=== PATIENT | male | born 1960 | race Caucasian/White ===

== ENCOUNTER 2016-07-27 17:14 | Emergency (ER) | payer OTHER ==
[~2016-07-27] VITALS: Ht 195.6 cm; Wt 102.3 kg
[2016-07-27 17:27] VITALS: BP 175/131; PULSE 85; RESP 16; O2SAT 98
--- NOTE | 2016-07-27 18:19 | ED.REPORT ---
HPI-Neurologic Deficit Date of Service Jul 27, 2016 ED Provider: Deric Tam DO Pt is a 56 y.io. male who presents to the ED c/o gradually worsening neck and upper back pain onset 2 weeks ago. Pt reports that pain radiates to his right arm and has associated right arm weakness. Pt denies fever, chills, nausea, vomiting, diarrhea, and general weakness. He states that he had similar pain several years ago that was resolved with a cortisone injection. After onset of his recent sx he received another cortisone injection but this time he felt no relief. Nursing Notes Stated Complaint: BACK PAIN Chief Complaint: Neuro Symptoms/ Deficits Nursing Notes Reviewed: Yes Allergies: Coded Allergies: No Known Allergies (Unverified , 07/27/16) General Time Seen by Provider: 18:19 Chief Complaint Weakness arm... (Right) Hx Obtained From: Patient Arrived By: Walk-in Sudden in Onset?: Yes Onset Occurred: More than a week ago... (2 weeks) Symptom Duration: Since onset Location: : Arm right: Back upper: Neck Quality: Painful Severity: Current: Moderate Severity: Maximum: Severe Recent Healthcare: No recent hospitalization, Recent doctor visit Similar Sx Previous: Yes Past Medical History Past Medical History Hx of [place] MARTI COPD Past Surgical History Reports: Back/neck surgery Social History Other Social History: Good social support Ambulatory Status Independent Review of Systems Constitutional: Denies: Chills, Fever GI: Denies: Diarrhea, Nausea, Vomiting Musculoskeletal: Reports: Back pain, Extremity pain (Right arm), Neck pain Neurologic: Reports: Focal weakness (Right arm) Complete sys rev & neg: except as marked. Physical Exam Initial Vital Signs Vital Signs (First) Date Time Temp Pulse Resp B/P Pulse Ox O2 Delivery O2 Flow Rate FiO2 07/27/16 17:27 35.9 85 16 175/131 98 07/27/16 19:46 Room Air Initial VS: Reviewed General/Constitutional: Awake, Alert, No acute distress, Well appearing, Well developed, Well hydrated, Well nourished, Not toxic appearing Head / Eyes: Atraumatic, Normocephalic, PERRL Respiratory / Chest: Atraumatic, Breath sounds NL, Breath sounds = bilat, No respiratory distress, No rales, No rhonchi, No wheezing, No retractions, No stridor Cardiovascular: Heart rate NL, Regular rhythm, Heart sounds NL, Peripheral circulation NL Neurologic: Oriented X3, Speech NL Focal Weakness: Positive: Upper extremity R (Decreased bicep and tricep strength) Neck: Atraumatic, Supple Neck / Muscle Tenderness: Positive: Midline tenderness low Back: Atraumatic Flank / Spine / Paraspinal: Positive: Thoracic spine tender... (High) Interpretation & Diagnostics PROCEDURE: MRI CERVICAL SPINE WITHOUT CONTRAST ([id number]) IMPRESSION: There is diffuse disc degenerative disease mild mild to moderate degree at C4-5 , C5-6, C6-7, and C7-T1. But there is no more than loss of ventral CSF space. No cord compression or deviation is seen. 2. Degenerative changes cause moderate to severe foraminal narrowing on the right at C4-5, bilaterally at C5-6 and severe foraminal narrowing bilaterally at C6-7. There is mild to moderate foraminal narrowing on the left at C4-5 and on the right at C7-T1. 3. No abnormal signal or size of the cord is seen. No paraspinal abnormal soft tissues or foreign. Dictated by: Juan Dumas M.D. on 07/27/2016 at 20:01 Approved by: Juan Dumas M.D. on 07/27/2016 at 20:14 Lab Results Interpretation Result Diagram: 07/27/16 1845 07/27/16 184 Test 07/27/16 18:45 White Blood Count 9.4th/mm3 (3.8-10.1) Red Blood Count 5.19mil/mm3 (4.40-5.80) Hemoglobin 16.6g/dL (13.8-17.2) Hematocrit 48.1% (41.0-50.0) Mean Corpuscular Volume 92.7fL (81-100) Mean Corpuscular Hemoglobin 32.0pg (27.0-35.0) Mean Corpuscular Hemoglobin Concent 34.5% (32.0-37.0) Red Cell Distribution Width 13.9% (12.3-15.4) Platelet Count 169bil/L (150-400) Neutrophils (%) (Auto) 60.8% (40-74) Lymphocytes (%) (Auto) 27.9% (14-46) Monocytes (%) (Auto) 8.4% (4-12) Eosinophils (%) (Auto) 2.4% (0-5) Basophils (%) (Auto) 0.3% (0-3) D-Dimer 0.8mg/L (<0.50) Sodium Level 141mEq/L (134-144) Potassium Level 4.5mEq/L (3.5-5.2) Chloride Level 105mEq/L (97-108) Carbon Dioxide Level 20mmol/L (18-29) Blood Urea Nitrogen 23mg/dL (6-24) Creatinine 0.99mg/dL (0.76-1.27) Estimat Glomerular Filtration Rate 83mL/min (>59) Glucose Level 98mg/dL (60-99) Calcium Level 9.0mg/dL (8.5-10.1) Total Bilirubin 0.6mg/dL (0.0-1.2) Aspartate Amino Transf (AST/SGOT) 21U/L (0-50) Alanine Aminotransferase (ALT/SGPT) 26U/L (0-44) Alkaline Phosphatase 82U/L (25-150) Troponin T < 0.010ug/L (0.0-0.011) C-Reactive Protein 0.3mg/dL (0.0-0.5) Total Protein 7.0g/dL (6.4-8.4) Albumin 4.3g/dL (3.4-5.0) Hold Mckinnon Top Tube Received (Received) ECG Interpretation Time: 21:07 Interpreted by: ED physician Normal ECG Interpretation: Normal rate (63), Normal sinus rhythm, No acute ischemic changes X-Ray Chest Interpretation Chest Xray Interpretation: IMPRESSION: Hyperinflated lungs suggesting COPD. Acute disease is not seen in the two-view chest. Dictated by: Juan Dumas M.D. on 07/27/2016 at 21:20 Approved by: Juan Dumas M.D. on 07/27/2016 at 21:21 CT Chest Interpretation IMPRESSION: Acute disease is not seen in the lungs. No evidence for embolus. Air and great vessels are considered normal. Cause of intrascapular pain is not apparent. No bony abnormality is seen. Dictated by: Juan Dumas M.D. on 07/27/2016 at 21:54 Approved by: Juan Dumas M.D. on 07/27/2016 at 22:00 Re-Eval/Medical Decision Med Decision/Clinical Course The MRI did not show any acute neurosurgical emergency. There is some spinal stenosis but I am not convinced is completely is the root cause of the radiculopathy. What is concerning is that he has history of DVT and he said some intermittent pain between his scapula. Although the pain seems musculoskeletal he had an elevated d-dimer so we Ct/D his chest. There is no PE. No dissection. No Pancoast tumor. I think he is going to do well with some oral pain medication. Also put him on a Medrol Dosepak and have close outpatient follow-up. Source of Hx: Old records Re-Evaluation/Progress #1: Time of Eval: 21:18 Re-Evaluation/Progress Note: Pt rechecked. Discussed MRI and x-ray results and need for CT. Pt understands and agrees with plan. Re-Evaluation/Progress #2: Time of Eval: 22:16 Re-Evaluation/Progress Note: Pt rechecked. Discussed plan for discharge, pt understands and agrees with plan. Counseled Regarding: Diagnosis Discharge & Departure Impression: Primary Impression: Cervical radiculopathy Additional Impression: Pinched nerve in neck Disposition: Home Discharge Condition All VS Reviewed: Yes Patient Instructions: Cervical Radiculopathy (ED) Additional Instructions: It appears that you have cervical radiculopathy. Follow-up with Dr. Ramirez. Take Medrol as directed. Take 1-2 Percocet every 6 hours as needed for pain. Do not drink, drive, or consume acetaminophen while taking Percocet. You may need a referral to an orthopedic spine surgeon or a neurologist. No blood clot, tear in your aorta, or mass pushing on brachial plexus was seen in your imaging. Return if you have any new or worsening symptoms such as increased weakness, numbness, tingling, or worsening pain. Referrals: Desean Ivy MD (Family) [place] Attestation Portions of this note were transcribed by Hanna Reyna. I, Dr. Tam personally performed the history, physical exam and medical decision-making; I reviewed and confirmed the accuracy of the information in the transcribed note. Signed by : Britt Concepcion, 07/27/16 and [id number]. copies to: Brad Ramirez MD; Desean Ivy MD, Todd P DO Jul 27, 2016 18:19 HANNA REYNA Jul 27, 2016 18:27
[2016-07-27] MEDS ORDERED: Ondansetron 2 mg/mL 2 mL Inj IVPUSH PRN (18:25)
[2016-07-27] MEDS: HYDROmorphone 0.5 mg/0.5 mL iSecure Syringe IVPUSH PRN ×4 (18:55→22:47)
[2016-07-27 19:05] LABS: BASOPHILS % (AUTO) 0.3 % (0-3); EOSINOPHILS % (AUTO) 2.4 % (0-5); MONOCYTES % (AUTO) 8.4 % (4-12); Mean Corpuscular Volume 92.7 fL (81-100); NEUTROPHILS % (AUTO) 60.8 % (40-74); Platelet Count 169 bil/L (150-400)
[2016-07-27 19:46] VITALS: BP 146/104; PULSE 71; O2SAT 98
--- NOTE | 2016-07-27 20:15 | DRSVH ---
PROCEDURE: MRI CERVICAL SPINE WITHOUT CONTRAST ([id number]) INDICATIONS: neck pain, tricep weak on right TECHNIQUE: Noncontrast sagittal T1 spin echo and T2 fast spin echo, sagittal STIR, foraminal oblique sagittal T2 fast spin echo, and axial gradient echo or T2 fast spin echo through the cervical spine. COMPARISON: None. FINDINGS: Image quality: Good. Alignment and Curvature: There is normal bony alignment. Bone Marrow: Marrow demonstrates normal overall signal. Spinal Cord: Visualized spinal cord has normal size and signal. No cerebellar tonsillar herniation. Paraspinous Soft Tissues: No paravertebral masses. Prevertebral soft tissues are normal in thicknes s. C2-C3: Normal appearance. C3-C4: Normal appearance. C4-C5: Is a minimal anterolisthesis of C4 on C5. There is mild mild disc osteophyte complex. Uncinate spurs and facet hypertrophic change causes moderate to severe right and mild to moderate left forami nal narrowing. There is a slight decrease in CSF space but no cord compression or deviation. C5-C6: There is mild diffuse bulging of disc uncinate spurs and facet hypertrophic change causes mode rate to severe foraminal narrowing bilaterally. There is a decrease in CSF space but no cord compress ion or deviation is seen. C6-C7: Is mild to moderate disc osteophyte complex. Uncinate spurs and facet hypertrophic change caus es severe foraminal narrowing bilaterally. There is decrease in CSF space but no cord compression or deviation. C7-T1: Mild diffuse bulging of disc is present. Uncinate spur and disc causes mild to moderate right foraminal narrowing. None is seen in the left. T1-T2: Normal appearance. T2-T3: Normal appearance. T3-T4: Normal appearance. IMPRESSION: There is diffuse disc degenerative disease mild mild to moderate degree at C4-5, C5-6, C6-7, and C7-T 1. But there is no more than loss of ventral CSF space. No cord compression or deviation is seen. 2. Degenerative changes cause moderate to severe foraminal narrowing on the right at C4-5, bilaterall y at C5-6 and severe foraminal narrowing bilaterally at C6-7. There is mild to moderate foraminal alicia rowing on the left at C4-5 and on the right at C7-T1. 3. No abnormal signal or size of the cord is seen. No paraspinal abnormal soft tissues or foreign. Dictated by: Juan Dumas M.D. on 07/27/2016 at 20:01 Approved by: Juan Dumas M.D. on 07/27/2016 at 20:14
[2016-07-27 21:14] VITALS: BP_SYST 133; BP_SYST 144; BP_DIAS 102; BP_DIAS 91
--- NOTE | 2016-07-27 21:22 | DRSVH ---
PROCEDURE: X-RAY CHEST, TWO VIEWS ([id number]) INDICATIONS: intrascapular pain TECHNIQUE: 2 views of the chest were acquired. COMPARISON: None. FINDINGS: Surgical changes and devices: None. Lungs and pleura: No pleural effusions or pneumothorax. Lungs are hyperinflated consistent with an e lement of COPD. No airspace disease. Acute disease is not identified. Mediastinum: Mediastinal contours are normal. Heart size is normal. Bones and chest wall: No suspicious bony abnormalities. Soft tissues appear unremarkable. IMPRESSION: Hyperinflated lungs suggesting COPD. Acute disease is not seen in the two-view chest. Dictated by: Juan Dumas M.D. on 07/27/2016 at 21:20 Approved by: Juan Dumas M.D. on 07/27/2016 at 21:21
--- NOTE | 2016-07-27 22:01 | DRSVH ---
PROCEDURE: CT ANGIO CHEST PULMONARY EMBOLISM ([id number]) INDICATIONS: intrascapular pain, chest pain, elevated ddimer TECHNIQUE: After the administration of intravenous contrast, 2 mm thick sections acquired from the pulmonary api yeni to the posterior costophrenic angles. 3-dimensional maximum intensity projection (MIP) coronal a nd sagittal reformats were then acquired through the thorax. For radiation dose reduction, the follo wing was used: automated exposure control, adjustment of mA and/or kV according to patient size. COMPARISON: [facility], CR, XR CHEST 2VW, 07/27/2016, 20:54. FINDINGS: Image quality: Good. Pulmonary arteries: Pulmonary arteries are normal in size, and demonstrate no intraluminal filling d efects to suggest central pulmonary embolism. Lungs and pleura: There is biapical pleural thickening and scarring. Lungs are clear. No pleural ef fusions or pneumothorax. Central and peripheral airways are patent. Mediastinum: Heart size is normal, without pericardial effusion. No mediastinal or hilar adenopathy . Thoracic aorta is normal in caliber and enhancement. Esophagus is normal in caliber, without hiat al hernia. Bones and chest wall: No suspicious bony lesions. Ribs and thoracic spine appear intact throughout. Thyroid gland is within normal limits.. No axillary or supraclavicular adenopathy. Abdomen: Visualized upper abdominal solid organs appear normal in the early arterial phase of enhanc ement. IMPRESSION: Acute disease is not seen in the lungs. No evidence for embolus. Air and great vessels are considered normal. Cause of intrascapular pain is not apparent. No bony abnormality is seen. Dictated by: Juan Dumas M.D. on 07/27/2016 at 21:54 Approved by: Juan Dumas M.D. on 07/27/2016 at 22:00
[2016-07-27] MEDS ORDERED: _oxyCODONE/APAP 5-325 mg Tablet PO PRN (22:10)
[2016-07-27] MEDS ORDERED: Dexamethasone Inj 10 MG in 0.9% Sodium Chloride-Pha MIX 50 ML IV ONE (22:10)
[2016-07-28 00:02] VITALS: BP 149/102; PULSE 88; RESP 14; O2SAT 98
[2016-07-28] MEDS ORDERED: Sodium Chloride LOK Flush 10 mL Syringe IVFLUSH SCH (00:30)
== END 2016-07-27 21:10 | disposition home or self-care (01) ==
LOC: SED 17:14
DX: M54.12 Radiculopathy, cervical region (principal); G58.8 Other specified mononeuropathies; I25.2 Old myocardial infarction; J44.9 Chronic obstructive pulmonary disease, unspecified
CPT/HCPCS: 36415; 71020; 71275; 72141; 80053; 84484; 85025; 85379; 86140; 93005; 96374; 96375; 96376; 99285; J1100; J1170; J2405; Q9967

== ENCOUNTER 2017-02-16 16:54 | Emergency (ER) | payer OTHER ==
[~2017-02-16] VITALS: Ht 195.6 cm; Wt 103.6 kg
[2017-02-16 16:57] VITALS: BP 118/82; PULSE 115; RESP 20; O2SAT 98
[2017-02-16 17:01] VITALS: BP 93/68; PULSE 119
[2017-02-16 18:03] LABS: BASOPHILS % (AUTO) 0.2 % (0-3); EOSINOPHILS % (AUTO) 1.2 % (0-5); MONOCYTES % (AUTO) 6.5 % (4-12); Mean Corpuscular Hemoglobin 32.6 pg (27.0-35.0); NEUTROPHILS % (AUTO) 77.9 % (40-74); Platelet Count 171 bil/L (150-400)
[2017-02-16 18:15] LABS: INR 1.03 ratio
[2017-02-16 18:35] LABS: APPEARANCE,URINE TURBID (CLEAR,HAZY); COLOR,URINE BLOODY (YELLOW)
[2017-02-16 18:36] LABS: OCCULT BLOOD,URINE LARGE (NEGATIVE); UROBILINOGEN,URINE NORMAL (NORMAL)
[2017-02-16 18:52] LABS: TROPONIN T < 0.010 ug/L (0.0-0.011)
--- NOTE | 2017-02-16 19:17 | ED.REPORT ---
HPI-General Illness Date of Service Feb 16, 2017 ED Provider: Milton Gonzalez MD A 56 year old male with a history of previous [place], COPD, recent CVA (12/2016) on Xeralto for the past month and MARTI presents to the ED with hematuria that began 24 hours ago. The patient was sent from for further evaluation after urine was positive for blood. He noticed a large amount of bright red blood in his urine yesterday at 1600 and his symptoms have been constant since onset. Last known normal urination was 2 days ago. There are no known exacerbating or relieving factors. The patient also reports experiencing lightheadedness for the past few days. Per nursing note, orthostatic vitals in the ED triage room were positive. Patient denies any recent fever, chills, dysuria, abdominal pain , testicular pain, chest pain, or SOB. He denies history of kidney stones. Nursing Notes Stated Complaint: BLOOD IN URINE SENT FROM Chief Complaint: Male Abdominal Pain Nursing Notes Reviewed: Yes Allergies: Coded Allergies: No Known Allergies (Unverified , 07/27/16) General Time Seen by MD: 17:12 Chief Complaint Other (Hematuria) Hx Obtained From: Patient Arrived By: Walk-in Sudden in Onset?: No Onset Occurred: Yesterday Symptom Duration: Since onset Additional Notes: + Hematuria + Lightheadeness Pertinent Negative: Pt denies other symptoms Recent Healthcare: No recent doctor visit, No recent hospitalization Past Medical History Past Medical History Hx of [place] MARTI COPD CVA Past Surgical History Reports: Back/neck surgery Social History Other Social History: Good social support, Local resident Ambulatory Status Independent Review of Systems Full Review of Systems Constitutional: Denies: Chills, Fever GI: Denies: Abdominal pain Male: Reports Hematuria, Denies Dysuria, Denies Testicular pain Neurologic: Reports: Lightheaded Complete sys rev & neg: except as marked. Physical Exam Nursing note and vitals reviewed. Constitutional: Well-developed, well-nourished. Not diaphoretic. Head: Normocephalic and atraumatic. Mouth/Throat: Oropharynx is clear and moist. No oropharyngeal exudate. Eyes: EOM are normal. Pupils are equal, round, and reactive to light. Neck: Supple, no tracheal deviation. Cardiovascular: Normal rate, regular rhythm. Equal and intact distal pulses throughout. Pulmonary/Chest: Effort normal and breath sounds normal. No respiratory distress. Abdominal: Soft. No distension. There is no tenderness, rebound, or guarding. Bowel sounds present. Male : No blood at the urethral meatus. Penis appears normal. Testicles nontender. Musculoskeletal: Range of motion grossly intact, moving all extremities. No edema or tenderness appreciated. Neurological: AOx3. Grossly nonfocal exam. Strength and sensation intact and equal to bilateral upper and lower extremities. * Skin: Warm and dry, no rashes or pallor appreciated. Psychiatric: Appropriate mood and affect. Behavior appears normal. Vital Signs Vital Signs Date Time Temp Pulse Resp B/P Pulse Ox O2 Delivery O2 Flow Rate FiO2 02/16/17 22:46 36.7 108 20 108/68 98 Room Air 02/16/17 17:01 119 93/68 02/16/17 16:57 36.1 115 20 118/82 98 Room Air Initial VS: Reviewed Interpretation & Diagnostics Lab Results Interpretation Result Diagram: 02/16/17 1745 02/16/17 1745 Test 02/16/17 15:45 02/16/17 17:09 02/16/17 17:45 02/16/17 18:12 Hold Mckinnon Top Tube Received (Received) Hold Urine Received (Received) White Blood Count 10.9th/mm3 (3.8-10.1) Red Blood Count 4.63mil/mm3 (4.40-5.80) Hemoglobin 15.1g/dL (13.8-17.2) Hematocrit 44.0% (41.0-50.0) Mean Corpuscular Volume 95.0fL (81-100) Mean Corpuscular Hemoglobin 32.6pg (27.0-35.0) Mean Corpuscular Hemoglobin Concent 34.3% (32.0-37.0) Red Cell Distribution Width 14.3% (12.3-15.4) Platelet Count 171bil/L (150-400) Neutrophils (%) (Auto) 77.9% (40-74) Lymphocytes (%) (Auto) 13.9% (14-46) Monocytes (%) (Auto) 6.5% (4-12) Eosinophils (%) (Auto) 1.2% (0-5) Basophils (%) (Auto) 0.2% (0-3) Prothrombin Time 11.0sec (8.1-12.5) Prothromb Time International Ratio 1.03ratio Sodium Level 140mEq/L (134-144) Potassium Level 4.2mEq/L (3.5-5.2) Chloride Level 103mEq/L (97-108) Carbon Dioxide Level 22mmol/L (18-29) Blood Urea Nitrogen 14mg/dL (6-24) Creatinine 1.01mg/dL (0.76-1.27) Estimat Glomerular Filtration Rate 81mL/min (>59) Glucose Level 143mg/dL (60-99) Calcium Level 8.6mg/dL (8.5-10.1) Magnesium Level 2.0mg/dL (1.6-2.6) Total Bilirubin 0.5mg/dL (0.0-1.2) Aspartate Amino Transf (AST/SGOT) 24U/L (0-50) Alanine Aminotransferase (ALT/SGPT) 29U/L (0-44) Alkaline Phosphatase 84U/L (25-150) Troponin T < 0.010ug/L (0.0-0.011) Total Protein 6.2g/dL (6.4-8.4) Albumin 4.1g/dL (3.4-5.0) Urine Color Bloody (YELLOW) Urine Appearance Turbid (CLEAR,HAZY) Urine pH 7.0 (5.0-8.0) Urine Specific [place] 1.020 (1.003-1.035) Urine Protein 300mg/dL (NEG,TRACE) Urine Glucose (UA) Negativemg/dL (NEGATIVE) Urine Ketones Negativemg/dL (NEGATIVE) Urine Occult Blood Large (NEGATIVE) Urine Nitrite Negative (NEGATIVE) Urine Bilirubin Negative (NEGATIVE) Urine Urobilinogen Normalmg/dL (NORMAL) Urine Leukocyte Esterase Negative (NEGATIVE) Urine RBC Packed/hpf (0-2) Urine WBC 0-5/hpf (0-5) Urine Epithelial Cells Occasional/hpf (NONE-MOD) Urine Crystals None seen (NONE SEEN) Urine Bacteria Few/hpf (NONE-FEW) Urine Hyaline Casts None/lpf (NONE) Urine Granular Casts None seen (NONE SEEN) Urine Waxy Casts None seen (NONE SEEN) Urine Red Blood Cell Casts None seen (NONE SEEN) Urine White Blood Cell Casts None seen (NONE SEEN) Urine Mucus None seen (None Seen) Urine Trichomonas None seen (NONE SEEN) Urine Yeast None (NONE SEEN) Urinalysis Comment None Urine Culture Reflexed Not indicated ECG Interpretation ECG Interpretation: Sinus rhythm Rate 91 bpm low voltage, extremity leads Unchanged from prior (07/27/2016) Time: 18:46 Interpreted by: ED physician Re-Eval/Medical Decision Med Decision/Clinical Course In summary, 56-year-old male with a complex past medical history presenting to the ED for evaluation of gross hematuria in the setting of being on Xarelto. Initially tachycardic in triage with positive orthostatics, however on my examination, patient with rate in 80s. No pain in his abdomen, suprapubic region, or with urination. I am concerned with his painless hematuria that this may represent something like bladder cancer or another intra-abdominal/ intrapelvic mass, however the patient does not have any physical examination findings or symptoms that were required emergent intervention or imaging at this time. Laboratory studies reviewed, notable for CMP grossly within normal limits, very mildly elevated white blood cell count without evidence of bandemia , hemoglobin of 15.1, and urinalysis with large amount of blood, no evidence of infection. Given the above concerns, urology was consulted; appreciate recommendations. Please see below. He feels that the patient should stop Xarelto, restarted on a baby aspirin daily, and follow-up with him in clinic on Sunday. No need for catheter at this time as patient is voiding spontaneously. I did discuss the patient's borderline hypotension and tachycardia with him, and he received fluids here in the ED. He states that he has been like this previously and feels better, and would like to be discharged home. Given that he appears well clinically and has close outpatient follow-up already arranged, this seems reasonable. Careful return precautions were discussed at length, and the patient was agreeable to the plan as stated, no further questions. Time of Eval: 21:56 Patient Status: Condition improved Re-Evaluation/Progress Note: Patient is informed of the plan to possibly place a catheter until follow-up. His questions about the intended treatment plan are addressed. Consultation : Referral / Consult Name: Emerson Tanner MD Consulted With: Urology Call Returned at: 21:36 Retail Office Manager: Will see in office, Agrees with eval, Agrees with plan Note: Discussed patient condition. Potential catheter placement is discussed. Recommends against cath placement. Recommends stopping Xeralto and follow up on Sunday. ([phone]) Counseled Regarding: Diagnosis, Lab results, Need for follow-up, When/why to return to ED Discharge & Departure Primary Impression: Gross hematuria Disposition: Home Discharge Condition All VS Reviewed: Yes Condition: Improved Patient Instructions: Hematuria (ED) Additional Instructions: Thank you for trusting us with your care this evening. Your emergency department evaluation today is reassuring that there is no emergent cause for concern at this time. However, a clear cause for your symptoms was not identified at this time. It is very important that you follow up on Sunday with urology for an appointment then as they will need to perform a special xray to look at your bladder to ensure there's not something serious causing this to happen. As we also discussed, you should stop taking your Xarelto for now until you're seen in clinic Sunday. There are risks associated with stopping this medicine, but it's important that you stop bleeding in the meantime. Take a baby aspirin daily until you follow up with your regular doctor, who I would also like you to follow up with on Sunday. They may decide to restart the medication then depending on your discussion with them. Please return to the emergency department for any new or worsening symptoms including difficulty voiding (peeing), any pain, fever, chills, weakness, lightheadedness, numbness/tingling, or any other symptoms of concern to you. Referrals: Snow Otero MD (PCP) Desean Ivy MD (Family) Emerson Tanner MD Attestation Portions of this note were transcribed by Kimberly Squires. I, Dr. Gonzalez personally performed the history, physical exam and medical decision-making; I reviewed and confirmed the accuracy of the information in the transcribed note. Signed by Britt Wiley, 02/16/17. copies to: Snow Otero MD; Desean Ivy MD, William B MD Feb 16, 2017 19:17 [facility] Feb 16, 2017 20:23 Milton Gonzalez MD Feb 16, 2017 19:17 [facility] Feb 16, 2017 20:23
[2017-02-16] MEDS ORDERED: 0.9% Sodium Chloride 1,000 ML IV ONE (20:30)
[2017-02-16 22:46] VITALS: BP 108/68; PULSE 108; RESP 20; O2SAT 98
== END 2017-02-16 22:00 | disposition home or self-care (01) ==
LOC: SED 16:54
DX: R31.0 Gross hematuria (principal); I25.2 Old myocardial infarction; J44.9 Chronic obstructive pulmonary disease, unspecified; Z86.73 Personal history of transient ischemic attack (TIA), and cerebral infarction without residual deficits
CPT/HCPCS: 36415; 80053; 81000; 83735; 84484; 85025; 85610; 86850; 93005; 96360; 99285; J7030